=== PATIENT | female | born 1965 | race African-American/Black ===

== ENCOUNTER 2018-11-04 12:35 | Emergency (ER) | payer MEDICAID, OTHER ==
[~2018-11-04] VITALS: Ht 160 cm; Wt 66.0 kg
[2018-11-04 12:46] VITALS: BP 155/86
[2018-11-04] MEDS ORDERED: ACETAMINOPHEN 325MG TABLET PO ONE (15:00)
== END 2018-11-04 16:03 | disposition home or self-care (01) ==
LOC: ER 12:51
DX: S20.212A Contusion of left front wall of thorax, initial encounter (principal); I10 Essential (primary) hypertension; E03.9 Hypothyroidism, unspecified; V43.52XA Car driver injured in collision with other type car in traffic accident, initial encounter; Y93.89 Activity, other specified; Y92.488 Other paved roadways as the place of occurrence of the external cause
CPT/HCPCS: 71045; 99283